=== PATIENT | female | born 1955 | race Caucasian/White ===

== ENCOUNTER 2016-05-30 10:57 | Emergency (ER) | payer OTHER ==
[2016-05-30] MEDS ORDERED: HYDROmorphone 1 MG/ML SYRINGE ONE ×2 (11:13→12:00)
[2016-05-30] MEDS ORDERED: HYDROmorphone 1 MG/ML SYRINGE IVP STA ×2 (11:18→11:59)
[2016-05-30] MEDS ORDERED: KETOROLAC 60 MG/2 ML VIAL IVP STA (11:18)
[2016-05-30] MEDS ORDERED: KETOROLAC 30 MG/ML VIAL ONE (11:22)
[2016-05-30] MEDS ORDERED: ONDANSETRON 4 MG/2 ML VIAL ONE (13:23)
[2016-05-30] MEDS ORDERED: ONDANSETRON 4 MG/2 ML VIAL IVP STA (13:24)
== END 2016-05-30 14:27 | disposition home or self-care (01) ==
DX: S52.531A Colles' fracture of right radius, initial encounter for closed fracture (principal); W01.0XXA Fall on same level from slipping, tripping and stumbling without subsequent striking against object, initial encounter; Y93.H2 Activity, gardening and landscaping; Y92.007 Garden or yard of unspecified non-institutional (private) residence as the place of occurrence of the external cause; Y99.8 Other external cause status
CPT/HCPCS: 25605; 73100; 73110; 96374; 96375; 96376; 99284; J1170

== ENCOUNTER 2016-09-13 08:06 | Outpatient (CLI) | payer OTHER ==
--- NOTE | 2016-09-13 13:49 | Ultrasound Report ---
THYROID ULTRASOUND: 09/13/2016 CLINICAL HISTORY: Patient had a small nodule in the mid portion of the right lobe of the thyroid on a preceding exam dated 08/13/2014. This small nodule was spongiform and measured 0.4 x 0.5 x 0.4 cm on preceding exam. TECHNIQUE: Real-time scanning was performed with account service representative static images obtained. FINDINGS: Right lobe of the thyroid measures 2.2 x 1.3 x 5.45 cm. Within the lhn-gu-alpyjosd aspect of the right lobe of the thyroid is once noted a small spongiform nodule measuring 0.5 x 0.4 x 0.4 cm. This nodule is unchanged in size as compared to preceding exam. It most likely is of benign etiology. Adjacent to or extending from the medial inferior aspect of the right lobe of the thyroid is a well-circumscribed, hypoechoic thyroid nodule or a right inferior parathyroid mass. This measures 0.9 x 0.7 x 0.8 cm. Recommend evaluating patient's parathyroid with at least a serum calcium to exclude a functioning parathyroid adenoma. If patient's accessory tests are negative for parathyroid adenoma, then recommend this area be carefully followed with a repeat thyroid ultrasound in one year for further evaluation. This mass lacks significant vascularity within it. There is some mild vascularity noted about its periphery. Thyroid isthmus has an AP diameter of 0.3 cm. Left lobe of the thyroid measures 1.6 x 4.85 x 1.4 cm. Left lobe of the thyroid shows no significant abnormality. IMPRESSION: 1. A 0.9 X 0.7 X 0.8 CM HYPOECHOIC, WELL-CIRCUMSCRIBED NODULE EITHER EXTENDING FROM OR ADJACENT TO THE MEDIAL INFERIOR ASPECT OF THE RIGHT LOBE OF THE THYROID. THIS NODULE IS NONSPECIFIC. IT MAY REPRESENT A THYROID NODULE WITH ANOTHER POSSIBILITY BEING A PARATHYROID ADENOMA. RECOMMEND AT THE VERY LEAST A SERUM CALCIUM FOR CORRELATION. IF PATIENT'S SERUM CALCIUM IS WITHIN NORMAL LIMITS, THEN RECOMMEND THIS AREA BE FOLLOWED WITH A REPEAT ULTRASOUND OF THE THYROID IN ONE YEAR FOR FURTHER EVALUATION. IF SERUM CALCIUM IS ELEVATED, THEN RECOMMEND AN ENT CONSULT AND PARATHYROID NUCLEAR MEDICINE SPECT SCAN. 2. A SMALL SPONGIFORM NODULE MEASURING 0.5 X 0.4 X 0.4 CM IS ONCE AGAIN NOTED IN THE [id number] ASPECT OF THE RIGHT LOBE OF THE THYROID. THIS IS UNCHANGED COMPARED TO 08/13/2014. IT MOST LIKELY IS OF BENIGN ETIOLOGY. JOB #: [id number] EXT JOB #: [id number] ANNALEE
--- NOTE | 2016-09-14 10:30 | DEXA Report ---
DEXA BONE MINERAL DENSITY SCAN: 09/13/2016 CLINICAL HISTORY: A 61-year-old postmenopausal female. TECHNIQUE: Dual energy x-ray absorptiometry (DXA) was performed on a [employer] system. Regions measured are the AP spine, femoral neck, and, if needed, forearm. COMPARISON: None. In accordance with the International Society for Clinical Densitometry (ISCD) guidelines, data from previous exams may be reanalyzed using current recommendations and techniques. This is done to allow a more accurate basis for comparison with the current study. FINDINGS: The data for the lumbar spine is as follows: REGION BMD (g/cm/cm) T-SCORE Z-SCORE L1 0.960 -1.4 -0.7 L2 1.008 -1.6 -0.9 L3 1.222 0.2 0.9 L4 1.065 -1.1 -0.4 TOTAL 1.064 -1.0 -0.3 NOTE: All evaluable vertebrae are used for classification. The data for the hip is as follows: REGION BMD (g/cm/cm) T-SCORE Z-SCORE Neck 0.911 -0.9 0.0 TOTAL 0.805 -1.6 -1.1 NOTE: The femoral neck or total proximal femur, whichever is lowest, is used for classification. IMPRESSION: L1 THROUGH L4 BONE MINERAL DENSITY IS 1.064 GRAMS/CM2 FOR A T-SCORE OF -1.0. THIS IS WITHIN NORMAL LIMITS ACCORDING TO THE WORLD HEALTH ORGANIZATION GUIDELINES. LEFT HIP TOTAL BONE MINERAL DENSITY IS 0.805 GRAMS/CM2 FOR A T-SCORE OF -1.6. THIS IS COMPATIBLE WITH OSTEOPENIA ACCORDING TO THE WORLD HEALTH ORGANIZATION GUIDELINES. LEFT FEMORAL NECK BONE MINERAL DENSITY IS 0.911 GRAMS/CM2 FOR A T-SCORE OF - 0.9. THIS IS WITHIN NORMAL LIMITS ACCORDING TO THE WORLD HEALTH ORGANIZATION GUIDELINES. THE WHO CLASSIFICATION BASED ON THE INTERNATIONAL REFERENCE STANDARD IS OSTEOPENIA. THE PATIENT HAS INCREASED FRACTURE RISK. RECOMMENDATION: Patients with diagnosis of osteoporosis or osteopenia should have regular bone mineral density assessment. For those eligible for Medicare, routine testing is allowed once every 2 years. Testing frequency can be increased for patients who have rapidly progressing disease or for those who are receiving medical therapy to restore bone mass. COMMENT: World Health Organization (WHO) definitions for osteoporosis and osteopenia: NORMAL BMD: T-score at -1.0 or higher, fracture risk is low. OSTEOPENIA BMD: T-score between -1.0 and -2.5, fracture risk is increased. OSTEOPOROSIS BMD: T-score at -2.5 or lower, fracture risk high. National Osteoporosis Foundation recommends: 1. Obtain adequate dietary calcium (at least 1200 mg per day) and vitamin D (400 -800 international units per day). 2. Participate, as appropriate, in regular weightbearing and muscle- strengthening exercise. 3. Avoid tobacco use and reduce alcohol and caffeine intake. 4. For more detailed information see the website at www.NOF.org. MTDD
== END 2016-09-13 08:07 | disposition home or self-care (01) ==
LOC: DI 08:06
PROVIDERS: ATTEND Nurse Practitioner Primary Care
DX: Z13.820 Encounter for screening for osteoporosis (principal); M85.88 Other specified disorders of bone density and structure, other site; E04.1 Nontoxic single thyroid nodule; Z78.0 Asymptomatic menopausal state
CPT/HCPCS: 76536; 77080

== ENCOUNTER 2016-09-17 08:00 | Outpatient (CLI) | payer OTHER | END 2016-09-17 08:01 | disposition home or self-care (01) | LOC: LAB.R 08:00 | PROVIDERS: ATTEND Nurse Practitioner Primary Care | DX: E04.1 Nontoxic single thyroid nodule (principal) | CPT/HCPCS: 82310; 83970 ==

== ENCOUNTER 2017-02-03 14:45 | Outpatient (CLI) | payer OTHER ==
[2017-02-03 13:57] LABS: BASOPHILS % (AUTO) 0.4 %; EOSINOPHILS # (AUTO) 0.1 10^3/uL (0.0-0.7); HGB - HEMOGLOBIN 14.6 g/dL (12.0-16.0); LYMPHOCYTES # (AUTO) 1.6 10^3/uL (1.5-3.5); LYMPHOCYTES % (AUTO) 48.8 %; MEAN CORPUSCULAR HEMOGLOBIN 30.4 pg (27.0-31.0); MEAN CORPUSCULAR HGB CONC 33.9 g/dL (32.0-36.0); MEAN CORPUSCULAR VOLUME 89.6 fL (81.0-99.0); MEAN PLATELET VOLUME 9.8 fL (7.9-10.8); MONOCYTES # (AUTO) 0.3 10^3/uL (0.0-1.0); MONOCYTES % (AUTO) 10.5 %; NEUTROPHILS # (AUTO) 1.2 10^3/uL (1.5-6.6); NEUTROPHILS % (AUTO) 36.3 %; RED CELL DISTRIBUTION WIDTH 13.4 % (12.0-15.0); UNCORRECTED WHITE BLOOD COUNT 3.2 x10^3/uL; WHITE BLOOD COUNT 3.2 x10^3/uL (4.8-10.8)
[2017-02-03 14:11] LABS: ALBUMIN/GLOBULIN RATIO 1.7 (1.0-2.2); BILIRUBIN,TOTAL 0.8 mg/dL (0.2-1.0); CALCIUM 9.4 mg/dL (8.5-10.3); CREATININE 0.8 mg/dL (0.4-1.0); POTASSIUM 3.8 mmol/L (3.5-5.0); TOTAL PROTEIN 6.7 g/dL (6.7-8.2)
== END 2017-02-03 14:46 | disposition home or self-care (01) ==
LOC: LAB.R 14:45
PROVIDERS: ATTEND Nurse Practitioner Primary Care
DX: Z00.00 Encounter for general adult medical examination without abnormal findings (principal); E04.1 Nontoxic single thyroid nodule
CPT/HCPCS: 80053; 84443; 85025

== ENCOUNTER 2017-02-22 08:00 | Outpatient (CLI) | payer OTHER ==
[2017-02-22 16:21] LABS: CHOL/HDL RATIO 3.3 (<4.4); CHOLESTEROL 217 mg/dL; HDL CHOLESTEROL 65 mg/dL; TRIGLYCERIDES 108 mg/dL; VLDL CHOLESTEROL 22 mg/dL
== END 2017-02-22 08:01 | disposition home or self-care (01) ==
LOC: LAB.R 08:00
PROVIDERS: ATTEND Nurse Practitioner Primary Care
DX: E78.5 Hyperlipidemia, unspecified (principal)
CPT/HCPCS: 80061

== ENCOUNTER 2017-12-16 08:00 | Outpatient (CLI) | payer OTHER ==
[2017-12-16 13:36] LABS: BASOPHILS % (AUTO) 0.9 %; EOSINOPHILS # (AUTO) 0.1 10^3/uL (0.0-0.7); EOSINOPHILS % (AUTO) 4.6 %; LYMPHOCYTES # (AUTO) 1.3 10^3/uL (1.5-3.5); LYMPHOCYTES % (AUTO) 41.6 %; MEAN CORPUSCULAR HEMOGLOBIN 30.9 pg (27.0-31.0); MEAN CORPUSCULAR HGB CONC 34.5 g/dL (32.0-36.0); MEAN CORPUSCULAR VOLUME 89.5 fL (81.0-99.0); MEAN PLATELET VOLUME 9.4 fL (7.9-10.8); MONOCYTES # (AUTO) 0.2 10^3/uL (0.0-1.0); MONOCYTES % (AUTO) 7.8 %; NEUTROPHILS # (AUTO) 1.4 10^3/uL (1.5-6.6); NEUTROPHILS % (AUTO) 45.1 %; PLT - PLATELET COUNT 214 10^3/uL (130-450); RED BLOOD COUNT 4.85 10^6/uL (4.20-5.40); RED CELL DISTRIBUTION WIDTH 13.8 % (12.0-15.0); WHITE BLOOD COUNT 3.1 x10^3/uL (4.8-10.8)
[2017-12-16 13:50] LABS: ALBUMIN 4.2 g/dL (3.2-5.5); ALBUMIN/GLOBULIN RATIO 1.8 (1.0-2.2); ALKALINE PHOSPHATASE 61 IU/L (42-121); ALT ALANINE AMINOTRANSFERASE 23 IU/L (10-60); AST ASPARTATE AMINOTRANSFERASE 20 IU/L (10-42); BILIRUBIN,TOTAL 0.8 mg/dL (0.2-1.0); BUN - BLOOD UREA NITROGEN 19 mg/dL (6-20); CALCIUM 9.4 mg/dL (8.5-10.3); CARBON DIOXIDE - CO2 29 mmol/L (21-32); CHLORIDE 103 mmol/L (101-111); CHOL/HDL RATIO 3.6 (<4.4); CHOLESTEROL 220 mg/dL; CREATININE 0.6 mg/dL (0.4-1.0); GFR - MDRD 101 (>89); GLUCOSE 83 mg/dL (70-100); HDL CHOLESTEROL 61 mg/dL; LDL CHOLESTEROL,CALCULATED 143 mg/dL; LDL/HDL RATIO 2.3 (<4.4); SODIUM 139 mmol/L (135-145); TOTAL PROTEIN 6.6 g/dL (6.7-8.2); VLDL CHOLESTEROL 16 mg/dL
[2017-12-17 12:22] LABS: HEPATITIS C ANTIBODY NON-REACTIVE (NON-REACTIVE)
== END 2017-12-16 08:01 | disposition home or self-care (01) ==
LOC: LAB.R 08:00
PROVIDERS: ATTEND Physician Assistant Medical
DX: E78.5 Hyperlipidemia, unspecified (principal); Z79.899 Other long term (current) drug therapy; M85.80 Other specified disorders of bone density and structure, unspecified site; R00.2 Palpitations; E04.1 Nontoxic single thyroid nodule; Z13.818 Encounter for screening for other digestive system disorders
CPT/HCPCS: 80053; 80061; 83721; 84443; 85025; 86803

== ENCOUNTER 2018-01-03 10:19 | Outpatient (CLI) | payer MEDICARE, BC ==
--- NOTE | 2018-01-03 17:55 | Ultrasound Report ---
Reason: THYROID NODULE, POSTMENOPAUSAL Procedure Date: 01/03/2018 Accession Number: [id number] / [id number] Procedure: US - Head or Neck Soft Tissue CPT Code: FULL RESULT: EXAM: THYROID ULTRASOUND EXAM DATE: 01/03/2018 12:07 PM. CLINICAL HISTORY: THYROID NODULE, POSTMENOPAUSAL. COMPARISON: 09/13/2016. TECHNIQUE: Real time sonographic imaging of the thyroid was performed by the material hauler. Multiple players club representative static images were saved for review. FINDINGS: THYROID GLAND: Right Lobe: 1.2 x 2.4 x 5.4 cm, volume 8 cc. Normal background echotexture. Right Lobe Nodules: A predominantly hypoechoic nodule in the midportion measures 0.3 x 0.4 x 0.3 cm, no change from prior allowing for slight differences in technique. Left Lobe: 1.5 x 1.8 x 4.8 cm, volume 6.5 cc. Normal background echotexture. Left Lobe Nodules: None. Isthmus: 0.3 cm AP. Isthmic Nodules: None. LYMPH NODES: No adenopathy demonstrated in the central or lateral compartment. OTHER: A hypoechoic nodule or parathyroid gland posterior to the lower pole of the right thyroid lobe measures 0.5 x 0.7 x 0.5 cm, similar to prior. IMPRESSION: 1. Stable hypoechoic nodule or parathyroid gland posterior to the lower pole of the right thyroid lobe. 2. Stable tiny nodule in the midportion of right thyroid lobe. Management recommendations are based on 2015 [place] [employer] Management Guidelines for Adult Patients with Thyroid Nodules and Differentiated Thyroid Cancer. RADIA
--- NOTE | 2018-01-04 11:31 | DEXA Report ---
Reason: THYROID NODULE, POSTMENOPAUSAL Procedure Date: 01/03/2018 Accession Number: [id number] / [id number] Procedure: DEX - Dexa Spine and/or Hip CPT Code: FULL RESULT: EXAM: Dexa Spine and/or Hip DATE: 01/03/2018 12:14 PM CLINICAL HISTORY: THYROID NODULE, POSTMENOPAUSAL TECHNIQUE: Dual energy x-ray absorptiometry (DXA) was performed on a [employer] System. Regions measured are the AP Spine, femoral neck, and if needed forearm. COMPARISON: 09/13/2016 In accordance with the International Society for Clinical Densitometry (ISCD) guidelines, data from previous exams may be reanalyzed using current recommendations and techniques. This is done to allow a more accurate basis for comparison with the current study. FINDINGS: The data for the lumbar spine is as follows: BMD (g/cm/cm) T-SCORE Z-SCORE REGION L1 0.937 -1.6 -0.5 L2 0.937 -2.2 -1.1 L3 1.219 0.2 1.2 L4 1.093 -0.9 0.2 TOTAL 1.048 -1.1 0.0 NOTE: All evaluable vertebrae are used for classification The data for the hip is as follows: BMD (g/cm/cm) T-SCORE Z-SCORE REGION Neck 1.034 0.0 1.1 TOTAL 0.790 -1.7 -0.9 NOTE: The femoral neck or total proximal femur, whichever is lowest, is used for classification. DXA RESULTS SUMMARY: Spine SCAN DATE AGE BMD CHANGE VS CHANGE VS PREVIOUS PREVIOUS % 01/03/2018 [age] 1.048 -0.016 -1.5 09/13/2016 [age] 1.064 * Denotes significant change at the 95% confidence level. Denotes dissimilar scan types or analysis methods. DXA RESULTS SUMMARY: Hip SCAN DATE AGE BMD CHANGE VS CHANGE VS PREVIOUS PREVIOUS % 01[birth year]03/2018 [age] 0.790 -0.015 -1.9 09/13/2016 [age] 0.805 * Denotes significant change at the 95% confidence level. Denotes dissimilar scan types or analysis methods. IMPRESSION: THE WHO CLASSIFICATION BASED ON THE INTERNATIONAL REFERENCE STANDARD IS OSTEOPENIA. THE FRACTURE RISK IS INCREASED. RECOMMENDATION: Patients with diagnosis of osteoporosis or osteopenia should have regular bone mineral density assessment. For those eligible for Medicare, routine testing is allowed once every 2 years. Testing frequency can be increased for patients who have rapidly progressing disease or for those who are receiving medical therapy to restore bone mass. COMMENT: World Health Organization (WHO) definitions for osteoporosis and osteopenia: NORMAL BMD: T-score at -1.0 or higher, fracture risk is low OSTEOPENIA BMD: T-score between -1.0 and -2.5, fracture risk is increased. OSTEOPOROSIS BMD: T-score at -2.5 or lower, fracture risk is high. National Osteoporosis Foundation recommends: 1. Obtain adequate dietary calcium (at least 1200 mg per day) and vitamin D (400-800 international units per day). 2. Participate, as appropriate, in regular weightbearing and muscle-strengthening exercise. 3. Avoid tobacco use and reduce alcohol and caffeine intake. 4. For more detailed information see the website at www.NOF.org.
== END 2018-01-03 10:20 | disposition home or self-care (01) ==
LOC: DI 10:19
PROVIDERS: ATTEND Physician Assistant Medical
DX: E04.1 Nontoxic single thyroid nodule (principal); M85.89 Other specified disorders of bone density and structure, multiple sites; Z78.0 Asymptomatic menopausal state
CPT/HCPCS: 76536; 77080

== ENCOUNTER 2018-08-03 14:20 | Emergency (ER) | payer MEDICARE, BC ==
[2018-08-03] MEDS ORDERED: LIDOCAINE VISCOUS 2% 15 ML UDC MM STA (15:10)
[2018-08-03 15:21] LABS: BASOPHILS % (AUTO) 0.7 %; EOSINOPHILS # (AUTO) 0.1 10^3/uL (0.0-0.7); HGB - HEMOGLOBIN 14.1 g/dL (12.0-16.0); LYMPHOCYTES # (AUTO) 1.5 10^3/uL (1.5-3.5); LYMPHOCYTES % (AUTO) 29.1 %; MEAN CORPUSCULAR HEMOGLOBIN 30.2 pg (27.0-31.0); MEAN CORPUSCULAR HGB CONC 33.8 g/dL (32.0-36.0); MEAN CORPUSCULAR VOLUME 89.4 fL (81.0-99.0); MEAN PLATELET VOLUME 9.3 fL (7.9-10.8); MONOCYTES # (AUTO) 0.4 10^3/uL (0.0-1.0); MONOCYTES % (AUTO) 8.5 %; NEUTROPHILS % (AUTO) 59.7 %; PLT - PLATELET COUNT 217 10^3/uL (130-450); RED BLOOD COUNT 4.67 10^6/uL (4.20-5.40); RED CELL DISTRIBUTION WIDTH 13.6 % (12.0-15.0)
--- NOTE | 2018-08-03 15:38 | ED Physician Documentation ---
PD HPI CHEST PAIN - Stated complaint Stated Complaint: CHEST PRESSURE/SOA - Chief complaint Chief Complaint: Cardiac - History obtained from History obtained from: Patient - History of Present Illness Timing - onset: Today Timing - duration: Minutes (2) Timing - details: Now resolved Pain level now: 0 Quality: Pressure Location: Substernal Improved by: Antacids Associated symptoms: Shortness of air - Additional information Additional information: The patient is a 63-year-old female with a past history of stress cardiomyopathy who presents after an episode of chest pressure. She reports having chest pressure while at rest yesterday that lasted for more than one hour before it was relieved with antacid. Today while at the gym using the elliptical machine she became lightheaded and short of breath. Her symptoms resolved after about 2 minutes. She denies any chest discomfort currently. She did not have any associated nausea or vomiting. Her past medical history is significant for stress cardiomyopathy (Takotsubo syndrome) about 5 years ago. Her angiogram revealed clean coronary arteries. Review of Systems Constitutional: denies: Fever Ears: denies: Tinnitus/ringing Nose: denies: Congestion Throat: denies: Sore throat Cardiac: reports: Chest pain / pressure Respiratory: reports: Dyspnea. denies: Cough GI: denies: Abdominal Pain, Nausea, Vomiting : denies: Dysuria Skin: denies: Rash Musculoskeletal: denies: Back pain, Extremity swelling Neurologic: denies: Headache PD PAST MEDICAL HISTORY - Past Medical History Cardiovascular: None, Atrial fibrillation, Other (Takotsubo syndrome) Respiratory: None Musculoskeletal: Osteoarthritis - Past Surgical History Past Surgical History: Yes General: Cholecystectomy - Present Medications Home Medications: Ambulatory Orders Medication Instructions Recorded Confirmed Naproxen Sodium [Aleve] 440 mg PO DAILY 01/29/13 01/29/13 SUMAtriptan [Imitrex] 100 mg PO PRN 01/29/13 01/29/13 Oxycodone HCl/Acetaminophen 1 each PO Q6H PRN #20 tablet 05/30/16 [Percocet 5-325 mg Tablet] - Allergies Allergies/Adverse Reactions: Allergies Allergy/AdvReac Type Severity Reaction Status Date / Time No Known Drug Allergies Allergy Verified 08/03/18 14:31 - Social History Does the pt smoke?: No Smoking Status: Never smoker Does the pt drink ETOH?: No Does the pt have substance abuse?: No PD ED PE NORMAL - Vitals Vital signs reviewed: Yes (normal) - General General: Alert and oriented X 3, Well developed/nourished - HEENT HEENT: Atraumatic, Pharynx benign - Neck Neck: No adenopathy, No JVD - Cardiac Cardiac: RRR, No murmur - Respiratory Respiratory: No respiratory distress, Clear bilaterally, Other (No chest wall tenderness to palpation.) - Abdomen Abdomen: Soft, Non tender - Back Back: No CVA TTP - Derm Derm: No rash - Extremities Extremities: No edema, No calf tenderness / cord - Neuro Neuro: Alert and oriented X 3, No motor deficit, No sensory deficit Results - Vitals Vitals: Oxygen O2 Source Room air - EKG (time done) 14:22 Rate: Rate (enter#) (63) Rhythm: NSR, LAE Ischemia: Normal ST segments Other comments: Other comments (RSR' in V2. consistent with RVH.) Compare to prior EKG: Changed from prior EKG (Compared to 04/11/12, no longer in A-fib.) Computer interpretation: Agree with computer - Labs Labs: Laboratory Tests 08/03/18 08/03/18 08/03/18 15:17 15:17 15:34 WBC 5.0 RBC 4.67 Hgb 14.1 Hct 41.7 MCV 89.4 MCH 30.2 MCHC 33.8 RDW 13.6 Plt Count 217 MPV 9.3 Neut # (Auto) 3.0 Lymph # (Auto) 1.5 Mcculloch # (Auto) 0.4 Eos # (Auto) 0.1 Baso # (Auto) 0.0 Absolute Nucleated RBC 0.00 Nucleated RBC % 0.0 Sodium 139 Potassium 3.7 Chloride 105 Carbon Dioxide 24 Anion Gap 10.0 BUN 18 Creatinine 0.7 Estimated GFR (MDRD) 84 L Glucose 88 Calcium 9.4 Total Bilirubin 0.8 AST 25 ALT 24 Alkaline Phosphatase 52 Troponin I < 0.04 Total Protein 6.6 L Albumin 4.2 Globulin 2.4 Albumin/Globulin Ratio 1.8 Lipase 31 - Rads (name of study) CXR Radiology: Prelim report reviewed, EMP read contemporaneously, See rad report (Normal chest radiography.) PD MEDICAL DECISION MAKING - ED course Complexity details: reviewed results, re-evaluated patient, considered differential, d/w patient, d/w family ED course: The patient's presentation is most consistent with gastroesophageal reflux. I doubt cardiac ischemia, and her EKG and troponin are normal. Chest x-ray reveals no evidence of pneumonia or pneumothorax, and I doubt pulmonary embolus. Treatment in the emergency department included administration of GI cocktail, which completely relieved her symptoms I discussed with her and her female blocker metal base the likely diagnosis, symptomatic treatment and outpatient follow-up, as well as potentially worrisome signs or symptoms that should prompt reevaluat ion in the emergency department. Departure - Departure Disposition: 01 Home, Self Care Clinical Impression: Gastroesophageal reflux disease Qualifiers: Esophagitis presence: esophagitis presence not specified Qualified Code(s): K21.9 - Gastro-esophageal reflux disease without esophagitis Condition: Stable Instructions: ED GERD Follow-Up: Maciej Zurita MD [Primary Care Provider] - Comments: Minimize coffee, holly, his alcohol. Try drinking liquid antacid, such as Maalox or Mylanta, if you develop recurrent symptoms. Follow-up with your primary physician. Call to schedule appointment. Return to the emergency department if you develop persistent chest pain or shortness of breath, or otherwise worsening symptoms. Discharge Date/Time: 08/03/18 17:21
[2018-08-03] MEDS ORDERED: MAG HYDROX/AL HYDROX/SIMETH 30 ML UDC PO STA (15:41)
[2018-08-03 15:51] LABS: ALBUMIN 4.2 g/dL (3.2-5.5); ALBUMIN/GLOBULIN RATIO 1.8 (1.0-2.2); BILIRUBIN,TOTAL 0.8 mg/dL (0.2-1.0); CALCIUM 9.4 mg/dL (8.5-10.3); CREATININE 0.7 mg/dL (0.4-1.0); TOTAL PROTEIN 6.6 g/dL (6.7-8.2)
--- NOTE | 2018-08-03 16:15 | XRAY Report ---
Reason: chest pain Procedure Date: 08/03/2018 Accession Number: [id number] / [id number] Procedure: XR - Chest 1 View X-Ray CPT Code: 97599 FULL RESULT: EXAM: CHEST RADIOGRAPHY EXAM DATE: 08/03/2018 03:07 PM. CLINICAL HISTORY: Chest pain. COMPARISON: CHEST 2 VIEW PA/LAT 01/29/2013 8:15 AM. TECHNIQUE: 1 view. FINDINGS: Lungs/Pleura: Hyperexpanded, but clear. No effusion or pneumothorax. Mediastinum: Within exam limitations, the cardiomediastinal contour is normal. Upper lobe vessels not distended. Other: None. IMPRESSION: No acute disease. RADIA
[2018-08-03 17:03] VITALS: BP 122/82
== END 2018-08-03 17:21 | disposition home or self-care (01) ==
LOC: ED 14:20
DX: K21.9 Gastro-esophageal reflux disease without esophagitis (principal); I51.81 Takotsubo syndrome
CPT/HCPCS: 36415; 71045; 80053; 83690; 84484; 85025; 93005; 99283; A9270

== ENCOUNTER 2019-07-19 08:00 | Outpatient (CLI) | payer MEDICARE, BC ==
[2019-07-19 13:29] LABS: EOSINOPHILS % (AUTO) 5.6 %; HGB - HEMOGLOBIN 14.6 g/dL (12.0-16.0); LYMPHOCYTES % (AUTO) 43.9 %; MEAN CORPUSCULAR HGB CONC 33.6 g/dL (32.0-36.0); MEAN CORPUSCULAR VOLUME 92.1 fL (81.0-99.0); MEAN PLATELET VOLUME 11.9 fL (7.9-10.8); MONOCYTES % (AUTO) 9.4 %; NEUTROPHILS % (AUTO) 39.8 %; PLT - PLATELET COUNT 211 10^3/uL (130-450); RED BLOOD COUNT 4.71 10^6/uL (4.20-5.40); RED CELL DISTRIBUTION WIDTH 13.2 % (12.0-15.0); WHITE BLOOD COUNT 2.9 x10^3/uL (4.8-10.8)
[2019-07-19 13:47] LABS: ALBUMIN 3.9 g/dL (3.2-5.5); ALBUMIN/GLOBULIN RATIO 1.6 (1.0-2.2); ALKALINE PHOSPHATASE 56 IU/L (42-121); ALT ALANINE AMINOTRANSFERASE 25 IU/L (10-60); AST ASPARTATE AMINOTRANSFERASE 23 IU/L (10-42); BILIRUBIN,TOTAL 0.9 mg/dL (0.2-1.0); BUN - BLOOD UREA NITROGEN 18 mg/dL (6-20); CALCIUM 9.3 mg/dL (8.5-10.3); CARBON DIOXIDE - CO2 25 mmol/L (21-32); CHLORIDE 107 mmol/L (101-111); CHOL/HDL RATIO 3.2 (<4.4); CHOLESTEROL 214 mg/dL; CREATININE 0.7 mg/dL (0.4-1.0); GLUCOSE 93 mg/dL (70-100); HDL CHOLESTEROL 66 mg/dL; LDL CHOLESTEROL,CALCULATED 137 mg/dL; LDL/HDL RATIO 2.1 (<4.4); SODIUM 138 mmol/L (135-145); TOTAL PROTEIN 6.3 g/dL (6.7-8.2); VLDL CHOLESTEROL 11 mg/dL
[2019-07-19 13:57] LABS: ABNORMAL LYMPHS % (MANUAL) 0 %; BAND NEUTROPHILS % (MANUAL) 0 %
[2019-07-19 14:17] LABS: DIFFERENTIAL COMMENT MANUAL DIFFERENTIAL; LYMPHOCYTES # (MANUAL) 1.7 10^3/uL (1.5-3.5); LYMPHOCYTES % (MANUAL) 57 %; MONOCYTES # (MANUAL) 0.2 10^3/uL (0.0-1.0); PLATELET ESTIMATE, MANUAL NORMAL (130-450,000) (NORMAL); PLATELET MORPHOLOGY NORMAL APPEARANCE (NORMAL); RBC MORPHOLOGY (MULTIPLE) NORMAL APPEARANCE (NORMAL)
== END 2019-07-19 23:59 | disposition home or self-care (01) ==
LOC: LAB.WCP 08:00
PROVIDERS: ATTEND Family Medicine
DX: E78.5 Hyperlipidemia, unspecified (principal); E04.1 Nontoxic single thyroid nodule; G43.709 Chronic migraine without aura, not intractable, without status migrainosus; M16.12 Unilateral primary osteoarthritis, left hip
CPT/HCPCS: 36415; 80053; 80061; 83721; 84443; 85025

== ENCOUNTER 2020-06-13 07:00 | Outpatient (CLI) | payer MEDICARE, BC | END 2020-06-13 23:59 | disposition home or self-care (01) | LOC: COV 07:00 | PROVIDERS: ATTEND Family Medicine | DX: R05 Cough (principal); R07.0 Pain in throat; Z20.822 Contact with and (suspected) exposure to COVID-19 ==

== ENCOUNTER 2020-09-09 07:49 | Outpatient (CLI) | payer MEDICARE, BC ==
[2020-09-09 08:06] LABS: BASOPHILS % (AUTO) 1.2 %; EOSINOPHILS # (AUTO) 0.1 10^3/uL (0.0-0.7); EOSINOPHILS % (AUTO) 2.7 %; HCT - HEMATOCRIT 43.9 % (37.0-47.0); HGB - HEMOGLOBIN 14.5 g/dL (12.0-16.0); LYMPHOCYTES # (AUTO) 1.2 10^3/uL (1.5-3.5); LYMPHOCYTES % (AUTO) 35.3 %; MEAN CORPUSCULAR HEMOGLOBIN 30.8 pg (27.0-31.0); MEAN CORPUSCULAR VOLUME 93.2 fL (81.0-99.0); MEAN PLATELET VOLUME 10.6 fL (7.9-10.8); MONOCYTES # (AUTO) 0.3 10^3/uL (0.0-1.0); NEUTROPHILS # (AUTO) 1.7 10^3/uL (1.5-6.6); NEUTROPHILS % (AUTO) 51.8 %; PLT - PLATELET COUNT 213 10^3/uL (130-450); RED BLOOD COUNT 4.71 10^6/uL (4.20-5.40); RED CELL DISTRIBUTION WIDTH 13.2 % (12.0-15.0); WHITE BLOOD COUNT 3.3 x10^3/uL (4.8-10.8)
[2020-09-09 08:26] LABS: ALBUMIN 4.3 g/dL (3.2-5.5); ALBUMIN/GLOBULIN RATIO 1.8 (1.0-2.2); ALKALINE PHOSPHATASE 57 IU/L (42-121); ALT ALANINE AMINOTRANSFERASE 24 IU/L (10-60); AST ASPARTATE AMINOTRANSFERASE 21 IU/L (10-42); BILIRUBIN,TOTAL 0.8 mg/dL (0.2-1.0); BUN - BLOOD UREA NITROGEN 22 mg/dL (6-20); CALCIUM 9.6 mg/dL (8.5-10.3); CARBON DIOXIDE - CO2 29 mmol/L (21-32); CHLORIDE 105 mmol/L (101-111); CHOL/HDL RATIO 3.2 (<4.4); CHOLESTEROL 209 mg/dL; CREATININE 0.6 mg/dL (0.4-1.0); GFR - MDRD 100 (>89); GLUCOSE 91 mg/dL (70-100); HDL CHOLESTEROL 65 mg/dL; LDL CHOLESTEROL,CALCULATED 128 mg/dL; SODIUM 139 mmol/L (135-145); TOTAL PROTEIN 6.7 g/dL (6.7-8.2); TRIGLYCERIDES 81 mg/dL; VLDL CHOLESTEROL 16 mg/dL
[2020-09-09 08:37] LABS: THYROID STIMULATING HORMONE 2.9 uIU/mL (0.34-5.60)
== END 2020-09-09 07:50 | disposition home or self-care (01) ==
LOC: LAB 07:49
PROVIDERS: ATTEND Family Medicine
DX: E78.5 Hyperlipidemia, unspecified (principal); E04.1 Nontoxic single thyroid nodule
CPT/HCPCS: 36415; 80053; 80061; 83721; 84443; 85025

== ENCOUNTER 2021-05-12 14:10 | Outpatient (CLI) | payer MEDICARE, BC ==
--- NOTE | 2021-05-12 16:21 | DEXA Report ---
PROCEDURE: Dexa Spine and/or Hip INDICATIONS: DISORDERS OF BONE DENSITY AND STRUCTURE TECHNIQUE: Dual energy x-ray absorptiometry (DXA) was performed on a [employer] System. Regions measur ed are the AP Spine, femoral neck, and if needed forearm. COMPARISON: None. FINDINGS: Lumbar Spine: Bone Mineral Density 1.067 g/cm/cm,T score -0.9, compared to -1.1 Left Hip: Bone Mineral Density 0.652 g/cm/cm,T score -2.8, compared to -1.7 Left Femoral Neck: Bone Mineral Density 0.856 g/cm/cm, T score -1.3, compared to 0. (T score greater or equal to -1.0: NORMAL) (T score from -1.1 to -2.4: OSTEOPENIA) (T score less than or equal to -2.5 to: OSTEOPOROSIS) Impression: Progressive bone loss within the left hip and femoral neck now demonstrating osteoporosis within the left hip. Overall, there is felt to be an approximate 18% bone mineral density loss. Patients with diagnosis of osteoporosis or osteopenia should have regular bone mineral density assess ment. For those eligible for Medicare, routine testing is allowed once every 2 years. Testing frequ ency can be increased for patients who have rapidly progressing disease or for those who are receivin g medical therapy to restore bone mass. Reviewed by: Kari Arango MD on 05/12/2021 4:20 PM PDT Approved by: Kari Arango MD on 05/12/2021 4:20 PM PDT Station ID: [id number]
== END 2021-05-12 14:11 | disposition home or self-care (01) ==
LOC: DI 14:10
PROVIDERS: ATTEND Family Medicine
DX: M81.0 Age-related osteoporosis without current pathological fracture (principal)

== ENCOUNTER 2021-12-05 06:08 | Emergency (ER) | payer MEDICARE, BC ==
[2021-12-05 06:38] LABS: BASOPHILS # (AUTO) 0.1 10^3/uL (0.0-0.1); BASOPHILS % (AUTO) 1.3 %; EOSINOPHILS # (AUTO) 0.2 10^3/uL (0.0-0.7); EOSINOPHILS % (AUTO) 5.8 %; HCT - HEMATOCRIT 44.2 % (37.0-47.0); HGB - HEMOGLOBIN 14.3 g/dL (12.0-16.0); LYMPHOCYTES # (AUTO) 1.8 10^3/uL (1.5-3.5); LYMPHOCYTES % (AUTO) 46.7 %; MEAN CORPUSCULAR HEMOGLOBIN 27.3 pg (27.0-31.0); MEAN CORPUSCULAR HGB CONC 32.4 g/dL (32.0-36.0); MEAN CORPUSCULAR VOLUME 84.4 fL (81.0-99.0); MONOCYTES # (AUTO) 0.3 10^3/uL (0.0-1.0); MONOCYTES % (AUTO) 8.6 %; NEUTROPHILS # (AUTO) 1.5 10^3/uL (1.5-6.6); NEUTROPHILS % (AUTO) 37.6 %; PLT - PLATELET COUNT 292 10^3/uL (130-450); RED BLOOD COUNT 5.24 10^6/uL (4.20-5.40); RED CELL DISTRIBUTION WIDTH 13.5 % (12.0-15.0); WHITE BLOOD COUNT 3.9 x10^3/uL (4.8-10.8)
--- NOTE | 2021-12-05 06:45 | ED Physician Documentation ---
PD HPI CHEST PAIN - Stated complaint Stated Complaint: CHEST PX - Chief complaint Chief Complaint: Cardiac - History obtained from History obtained from: Patient, Family - History of Present Illness Timing - onset: Today Timing - onset during: Rest Timing - duration: Minutes Timing - details: Abrupt onset, Now resolved Quality: Pressure Location: Substernal, Left chest Improved by: Rest Associated symptoms: No: Shortness of air, Diaphoresis, Nausea, Vomiting, Feeling faint / dizzy, General Weakness, Palpitations, Cough Similar symptoms before: Diagnosis (afib with RVR tachasobo) Recently seen: Not recently seen - Additional information Additional information: 66-year-old Daphne Burks awoke this morning to find herself in atrial fibrillation. She had a rapid rate maxing out at 144 and she developed some chest pain associated with this without diaphoresis or radiation. She has come to the emergency department and is now converted. She believes the episode lasted about 10-15 minutes at about 530am. Review of Systems Constitutional: denies: Fever, Chills, Myalgias Eyes: denies: Decreased vision Ears: denies: Ear pain Nose: denies: Rhinorrhea / runny nose, Congestion Throat: denies: Sore throat Cardiac: reports: Chest pain / pressure, Palpitations Respiratory: denies: Dyspnea, Cough, Wheezing GI: denies: Abdominal Pain, Nausea, Vomiting, Constipation, Diarrhea : denies: Dysuria, Frequency PD PAST MEDICAL HISTORY - Past Medical History Past Medical History: Yes Cardiovascular: None, Atrial fibrillation, Other Respiratory: None Musculoskeletal: Osteoarthritis - Past Surgical History Past Surgical History: Yes General: Cholecystectomy - Present Medications Home Medications: Ambulatory Orders Medication Instructions Recorded Confirmed SUMAtriptan [Imitrex] 100 mg PO DAILY 01/29/13 12/05/21 Alendronate Sodium 70 mg PO DAILY 12/05/21 12/05/21 Aspirin Chewable [[place] 81 mg PO DAILY 12/05/21 12/05/21 Aspirin] - Allergies Allergies/Adverse Reactions: Allergies Allergy/AdvReac Type Severity Reaction Status Date / Time No Known Drug Allergies Allergy Verified 12/05/21 06:32 - Social History Does the pt smoke?: No Smoking Status: Never smoker Does the pt drink ETOH?: No Does the pt have substance abuse?: No - POLST Patient has POLST: No PD ED PE NORMAL - Vitals Vital signs reviewed: Yes (normal ) - General General: Alert and oriented X 3, No acute distress, Well developed/nourished - HEENT HEENT: Atraumatic, PERRL, EOMI - Neck Neck: Supple, no meningeal sign, No bony TTP - Cardiac Cardiac: RRR, No murmur - Respiratory Respiratory: No respiratory distress, Clear bilaterally - Abdomen Abdomen: Normal bowel sounds, Soft, Non tender, Non distended, No organomegaly - Back Back: No CVA TTP, No spinal TTP - Derm Derm: Normal color, Warm and dry, No rash - Extremities Extremities: No deformity, No edema - Neuro Neuro: Alert and oriented X 3, rv servicer 2-12 intact, No motor deficit, No sensory deficit, Normal speech Eye Opening: Spontaneous Motor: Obeys Commands Verbal: Oriented GCS Score: 15 - Psych Psych: Normal mood, Normal affect Results - Vitals Vitals: Vital Signs - 24 hr 12/05/21 12/05/21 12/05/21 06:20 06:25 06:47 Temperature 36.6 C Heart Rate 66 65 Respiratory 12 12 Rate Blood Pressure 120/79 117/76 Blood Pressure 120/79 [Left] O2 Saturation 99 99 Oxygen O2 Source Room air - EKG (time done) 0610 Rate: Rate (enter#) (71) Rhythm: NSR, LESA Frederick: RAD Ischemia: Q waves Compare to prior EKG: Changed from prior EKG ([facility] 10-05-2021 rate has decreased and the rhythm has converted to sinus. ) Computer interpretation: Agree with computer - Labs Labs: Laboratory Tests 12/05/21 12/05/21 12/05/21 06:25 06:25 06:25 WBC 3.9 L RBC 5.24 Hgb 14.3 Hct 44.2 MCV 84.4 MCH 27.3 MCHC 32.4 RDW 13.5 Plt Count 292 MPV 11.0 H Neut # (Auto) 1.5 Lymph # (Auto) 1.8 Kane # (Auto) 0.3 Eos # (Auto) 0.2 Baso # (Auto) 0.1 Absolute Nucleated RBC 0.00 Nucleated RBC % 0.0 Sodium 140 Potassium 3.7 Chloride 106 Carbon Dioxide 28 Anion Gap 6.0 BUN 22 H Creatinine 0.7 Estimated GFR (MDRD) 83 L Glucose 104 H Calcium 9.3 Total Bilirubin 0.6 AST 18 ALT 18 Alkaline Phosphatase 48 Troponin I High Sens 7.4 Total Protein 7.1 Albumin 4.3 Globulin 2.8 Albumin/Globulin Ratio 1.5 Lipase 36 - Rads (name of study) chest Radiology: Prelim report reviewed (Impression: 1. Cardiomegaly without failure.), EMP read indepedently, See rad report Procedures - IVC sono (time) 0642 Bedside IVC sono: IVC measures (cm) (0.93), IVC collapsed c insp (cm) (complete), Dehydration (est 1-2 liter deficit) PD MEDICAL DECISION MAKING - ED course Complexity details: considered differential, d/w patient, d/w family ED course: 66-year-old female with a history of paroxysmal atrial fibrillation who is on aspirin has developed acute A. fib with RVR and she had chest pain associated w ith this, has spontaneously converted and the patient arrives to the emergency department asymptomatic. We did find that she was dehydrated 1 to 2 L on bedside ultrasound examination of the inferior vena cava and we provided intravenous saline to treat that. Her initial troponin was negative her CXR without evidence of failure and blood counts and electrolytes normal. At shift change a second troponin is pending and care is turned over to Dr. Quinn. Departure - Departure Clinical Impression: Atypical chest pain, Dehydration Condition: Stable Instructions: ED Dehydration, ED Chest Pain Atypical Unkn Cause, ED Afib Follow-Up: Maciej Zurita MD [Primary Care Provider] - Bienvenido Townsend MD [Provider Admit Priv/Credential] - Comments: Deb, today it looks like you had an episode of atrial fibrillation with rapid ventricular response which has spontaneously converted and we did not find other problems with the exception of some mild dehydration and we have provided some saline for this. My recommendation is to follow-up with your silver solution mixer.
[2021-12-05 06:50] LABS: ALBUMIN 4.3 g/dL (3.2-5.5); ALBUMIN/GLOBULIN RATIO 1.5 (1.0-2.2); BILIRUBIN,TOTAL 0.6 mg/dL (0.2-1.0); CALCIUM 9.3 mg/dL (8.5-10.3); CREATININE 0.7 mg/dL (0.4-1.0); POTASSIUM 3.7 mmol/L (3.5-5.0); TOTAL PROTEIN 7.1 g/dL (6.7-8.2)
[2021-12-05] MEDS ORDERED: SODIUM CHLORIDE 0.9% 1,000 ML IV STA (07:27)
[2021-12-05 07:55] VITALS: BP 113/72
--- NOTE | 2021-12-05 08:10 | XRAY Report ---
PROCEDURE: Chest 1 View X-Ray INDICATIONS: Chest pain TECHNIQUE: One view of the chest was acquired. COMPARISON: 08/03/2018, 01/29/2013 FINDINGS: Surgical changes and devices: None. Lungs and pleura: No pleural effusions or pneumothorax. Lungs are clear, yet mildly hyperexpanded. Mediastinum: Mediastinal contours appear normal. Heart size is minimally enlarged for portable tech nique. Bones and chest wall: No suspicious bony lesions. Overlying soft tissues appear unremarkable. IMPRESSION: No acute abnormality is seen on this portable chest study. The heart size is minimally enlarged. Mild hyperexpansion of the lungs. Note: No significant discrepancy from the preliminary report. Reviewed by: Mario Medel MD on 12/05/2021 7:09 AM JAVON Approved by: Mario Medel MD on 12/05/2021 7:09 AM JAVON Station ID: [id number]
--- NOTE | 2021-12-05 08:46 | ED Physician Documentation ---
ED Addendum - Addendum Addendum: 12/05/21 08:45 Patient signed out to me by Dr. Reynolds. Follow-up on repeat troponin. Repeat troponin is Also negative. Patient reports denies any chest pain and feels back to normal. She is comfortable with plan for discharge and advised on return precautions. Departure - Departure Disposition: 01 Home, Self Care Clinical Impression: Atypical chest pain, Dehydration Condition: Stable Instructions: ED Afib, ED Chest Pain Atypical Unkn Cause, ED Dehydration Follow-Up: Maciej Zurita MD [Primary Care Provider] - Bienvenido Townsend MD [Provider Admit Priv/Credential] - Comments: Deb, today it looks like you had an episode of atrial fibrillation with rapid ventricular response which has spontaneously converted and we did not find other problems with the exception of some mild dehydration and we have provided some saline for this. My recommendation is to follow-up with your rubber grinder.
== END 2021-12-05 09:01 | disposition home or self-care (01) ==
LOC: ED 06:08
DX: R07.89 Other chest pain (principal); E86.0 Dehydration; I48.0 Paroxysmal atrial fibrillation; Z79.82 Long term (current) use of aspirin
CPT/HCPCS: 36415; 80053; 83690; 84484; 85025; 93005; 96360; 99284

== ENCOUNTER 2022-09-06 07:29 | Outpatient (CLI) | payer MEDICARE, OTHER ==
[2022-09-06 08:01] LABS: ALBUMIN 3.9 g/dL (3.2-5.5); ALBUMIN/GLOBULIN RATIO 1.3 (1.0-2.2); ALKALINE PHOSPHATASE 35 IU/L (42-121); ALT ALANINE AMINOTRANSFERASE 18 IU/L (10-60); AST ASPARTATE AMINOTRANSFERASE 18 IU/L (10-42); BILIRUBIN,TOTAL 0.8 mg/dL (0.2-1.0); BUN - BLOOD UREA NITROGEN 17 mg/dL (6-20); CALCIUM 9.8 mg/dL (8.5-10.3); CARBON DIOXIDE - CO2 30 mmol/L (21-32); CHLORIDE 105 mmol/L (101-111); CHOL/HDL RATIO 3.9 (<4.4); CHOLESTEROL 243 mg/dL; CREATININE 0.7 mg/dL (0.4-1.0); GFR - MDRD 83 (>89); GLUCOSE 98 mg/dL (70-100); HDL CHOLESTEROL 63 mg/dL; LDL CHOLESTEROL,CALCULATED 161 mg/dL; LDL/HDL RATIO 2.6 (<4.4); POTASSIUM 4.2 mmol/L (3.5-5.0); SODIUM 141 mmol/L (135-145); TOTAL PROTEIN 6.8 g/dL (6.7-8.2); TRIGLYCERIDES 97 mg/dL; VLDL CHOLESTEROL 19 mg/dL
[2022-09-06 08:11] LABS: EOSINOPHILS # (AUTO) 0.2 10^3/uL (0.0-0.7); EOSINOPHILS % (AUTO) 4.3 %; HCT - HEMATOCRIT 44.7 % (37.0-47.0); HGB - HEMOGLOBIN 14.7 g/dL (12.0-16.0); LYMPHOCYTES # (AUTO) 1.9 10^3/uL (1.5-3.5); LYMPHOCYTES % (AUTO) 49.1 %; MEAN CORPUSCULAR HEMOGLOBIN 29.3 pg (27.0-31.0); MEAN CORPUSCULAR HGB CONC 32.9 g/dL (32.0-36.0); MEAN CORPUSCULAR VOLUME 89.2 fL (81.0-99.0); MONOCYTES # (AUTO) 0.4 10^3/uL (0.0-1.0); MONOCYTES % (AUTO) 10.2 %; NEUTROPHILS # (AUTO) 1.4 10^3/uL (1.5-6.6); NEUTROPHILS % (AUTO) 35.4 %; PLT - PLATELET COUNT 259 10^3/uL (130-450); RED BLOOD COUNT 5.01 10^6/uL (4.20-5.40); RED CELL DISTRIBUTION WIDTH 13.7 % (12.0-15.0); WHITE BLOOD COUNT 3.9 x10^3/uL (4.8-10.8)
[2022-09-06 08:13] LABS: THYROID STIMULATING HORMONE 4.93 uIU/mL (0.34-5.60)
[2022-09-06 12:36] LABS: ESTIMATED AVERAGE GLUCOSE 114 mg/dL (70-100); HEMOGLOBIN A1c% 5.6 % (4.27-6.07)
== END 2022-09-06 07:30 | disposition home or self-care (01) ==
LOC: LAB 07:29
PROVIDERS: ATTEND Physician Assistant
DX: E78.5 Hyperlipidemia, unspecified (principal); R73.01 Impaired fasting glucose
CPT/HCPCS: 36415; 80053; 80061; 83036; 83721; 84443; 85025

== ENCOUNTER 2023-01-07 09:10 | Outpatient (CLI) | payer MEDICARE, OTHER ==
[2023-01-07 09:45] LABS: ALBUMIN 4.1 g/dL (3.2-5.5); ALBUMIN/GLOBULIN RATIO 1.7 (1.0-2.2); BILIRUBIN,TOTAL 0.6 mg/dL (0.2-1.0); CALCIUM 9.8 mg/dL (8.5-10.3); CREATININE 0.8 mg/dL (0.6-1.3); POTASSIUM 4.6 mmol/L (3.5-4.5); TOTAL PROTEIN 6.5 g/dL (6.4-8.9)
== END 2023-01-07 09:11 | disposition home or self-care (01) ==
LOC: LAB 09:10
PROVIDERS: ATTEND Physician Assistant
DX: M81.0 Age-related osteoporosis without current pathological fracture (principal)
CPT/HCPCS: 36415; 80053

== ENCOUNTER 2023-10-13 07:16 | Outpatient (CLI) | payer MEDICARE, OTHER ==
[2023-10-13 07:27] LABS: BILIRUBIN,URINE NEGATIVE (NEGATIVE); GLUCOSE, URINE (UA) NEGATIVE (NEGATIVE); KETONES,URINE (UA) NEGATIVE (NEGATIVE); LEUKOCYTE ESTERASE, URINE LARGE (NEGATIVE); NITRITE,URINE NEGATIVE (NEGATIVE); OCCULT BLOOD,URINE SMALL (NEGATIVE); PH,URINE 7.5 PH (5.0-7.5); PROTEIN,URINE NEGATIVE (NEGATIVE); UROBILINOGEN,URINE 0.2 (NORMAL) E.U./dL (NORMAL)
[2023-10-13 07:36] LABS: CLARITY,URINE HAZY (CLEAR)
[2023-10-13 07:38] LABS: WBC CLUMPS,URINE PRESENT; WBC,URINE >25 /HPF (0-5)
[2023-10-13 07:39] LABS: BACTERIA,URINE Few /HPF (None Seen); SQUAMOUS EPITHELIAL CELL,UR RARE Squamous (<= Few)
== END 2023-10-13 07:17 | disposition home or self-care (01) ==
LOC: LAB.R 07:16
PROVIDERS: ATTEND Nurse Practitioner Family
DX: R30.0 Dysuria (principal)
CPT/HCPCS: 81001; 87086